=== PATIENT | female | born 1965 | race Caucasian/White ===

== ENCOUNTER 2020-11-12 15:54 | Inpatient (IN) | payer OTHER ==
[~2020-11-12] VITALS: Ht 170.2 cm; Wt 181.4 kg
[~2020-11-12 15:54] MED LIST: ABILIFY30 MG PO; BUSPAR 5MG TABLE5 MG PO; COREG 12.5MG12.5 MG PO; HUMALOG100 UNIT/1 SC; INVANZ1 GM IV; LEVEMIR100 UNIT/1 SC; LIPITOR TAB 2020 MG PO; VISTARIL25 MG PO
[2020-11-12 17:56] LABS: RED BLOOD COUNT 5.49 M/UL (4.00-5.10); WHITE BLOOD COUNT 17.1 K/UL (4.5-11.0)
[2020-11-13 04:24] LABS: RED BLOOD COUNT 5.06 M/UL (4.00-5.10); WHITE BLOOD COUNT 13.6 K/UL (4.5-11.0)
[2020-11-13 04:38] LABS: HEMOGLOBIN 13.9 gm/dl (12.3-15.3)
[2020-11-13] MEDS ORDERED: ABILIFY10 MG PO (10:00)
[2020-11-13] MEDS ORDERED: BUSPIRONE HCL15 MG PO (10:01)
[2020-11-13] MEDS ORDERED: ATORVASTATIN CA40 MG PO (10:03)
[2020-11-13] MEDS ORDERED: COREG 25MG TAB25 MG PO (10:04)
[2020-11-13] MEDS ORDERED: IMIPRAMINE HCL50 MG PO (10:05)
[2020-11-13] MEDS ORDERED: VITAMIN D21250 MCG PO (10:07)
[2020-11-13] MEDS ORDERED: BASAGLAR K100 UNIT/1 SQ (10:09)
[2020-11-13] MEDS ORDERED: ADMELOG100 UNIT/1 SC (10:10)
[2020-11-14 05:54] LABS: RED BLOOD COUNT 4.82 M/UL (4.00-5.10); WHITE BLOOD COUNT 10.7 K/UL (4.5-11.0)
[2020-11-18 06:30] LABS: HEMOGLOBIN 14.4 gm/dl (12.3-15.3); RED BLOOD COUNT 4.95 M/UL (4.00-5.10); WHITE BLOOD COUNT 8.2 K/UL (4.5-11.0)
[2020-11-19 06:34] LABS: HEMOGLOBIN 14.2 gm/dl (12.3-15.3); RED BLOOD COUNT 4.86 M/UL (4.00-5.10)
[2020-11-20] MEDS ORDERED: AMLODIPINE BESYL5 MG PO (09:44)
== END 2020-11-20 16:56 | DRG 565 ==
LOC: ER1 15:54 → CDU 22:30 → MED SURG 4 11-13 15:42
PROVIDERS: Internal Medicine; Preventive Medicine Occupational Medicine; ADMIT Internal Medicine
PROC: B24BZZ4 Ultrasonography of Heart with Aorta, Transesophageal (ICD-10-PCS; principal; 2020-11-14)
DX: T79.6XXA Traumatic ischemia of muscle, initial encounter (principal); N17.9 Acute kidney failure, unspecified; W18.30XA Fall on same level, unspecified, initial encounter; E11.65 Type 2 diabetes mellitus with hyperglycemia; E66.01 Morbid (severe) obesity due to excess calories; Z20.822 Contact with and (suspected) exposure to COVID-19; I11.0 Hypertensive heart disease with heart failure; I50.9 Heart failure, unspecified; R53.81 Other malaise; E11.42 Type 2 diabetes mellitus with diabetic polyneuropathy; F20.9 Schizophrenia, unspecified; Y92.009 Unspecified place in unspecified non-institutional (private) residence as the place of occurrence of the external cause; Z82.49 Family history of ischemic heart disease and other diseases of the circulatory system; Z79.4 Long term (current) use of insulin; Z87.891 Personal history of nicotine dependence
CPT/HCPCS: ECHO; 0240U; 36415; 70450; 71045; 72100; 72170; 80048; 80053; 80202; 81001; 82550; 82553; 82962; 83036; 83874; 83880; 84484; 85025; 85652; 86140; 87086; 93005; 93306; 93970; 94640; 94664; 94760; 96365; 96366; 96372; 96375; 96376; 97110; 97116; 97116-GP-CQ; 97161; 97530; 97530-GP-CQ; 99285; G0378; J0696; J1650; J3370; J7030; J7050; J7070; Q0177; U0002

== ENCOUNTER 2021-07-22 10:12 | Inpatient (IN) | payer OTHER ==
[~2021-07-22] VITALS: Ht 170.2 cm; Wt 147.4 kg
[~2021-07-22 10:12] MED LIST changes: +ABILIFY10 MG PO; +AMLODIPINE BESYL5 MG PO; +ATORVASTATIN CA40 MG PO; +BASAGLAR K100 UNIT/1 SQ; +BUSPIRONE HCL15 MG PO; +COREG 25MG TAB25 MG PO; +IMIPRAMINE HCL50 MG PO; -VISTARIL25 MG PO; +VITAMIN D21250 MCG PO
[2021-07-22 10:59] LABS: HEMOGLOBIN 14.7 gm/dl (12.3-15.3); RED BLOOD COUNT 4.97 M/UL (4.00-5.10); WHITE BLOOD COUNT 9.7 K/UL (4.5-11.0)
[2021-07-22] MEDS ORDERED: VOLTAREN ARTHRI20 GM TOP (15:44)
[2021-07-22] MEDS ORDERED: VISTARIL25 MG PO (19:00)
[2021-07-23 02:53] LABS: WHITE BLOOD COUNT 9.8 K/UL (4.5-11.0)
[2021-07-23 02:59] LABS: RED BLOOD COUNT 4.15 M/UL (4.00-5.10)
[2021-07-23 09:12] LABS: ACINETOBACTER BAUMANNII Not Detected (Negative); ENTEROCOCCUS Not Detected (Negative); ESCHERICHIA COLI Not Detected (Negative); KLEBSIELLA OXYTOCA Not Detected (Negative); KLEBSIELLA PNEUMONIAE Not Detected (Negative); KPC-CARBAPENEM-RESISTANCE GENE Not Detected (Negative); PROTEUS Not Detected (Negative); SERRATIA MARCESANS Not Detected (Negative); STAPHYLOCOCCUS AUREUS Not Detected (Negative); STREP AGALACTIAE (GROUP B) Not Detected (Negative); STREP PYOGENES (GROUP A) Not Detected (Negative); STREPTOCOCCUS Not Detected (Negative); vanA/B (VANCOMYCIN RESIST GENE Not Detected (Negative)
[2021-07-23 09:13] LABS: CANDIDA ALBICANS Not Detected (Negative); CANDIDA KRUSEI Not Detected (Negative); CANDIDA TROPICALIS Not Detected (Negative); HAEMOPHILUS INFLUENZAE Not Detected (Negative); PSEUDOMONAS AERUGINOSA Not Detected (Negative)
[2021-07-23 10:26] LABS: STAPHYLOCOCCUS DETECTED (Negative); mecA (METHICILLIN RESIST GENE DETECTED (Negative)
[2021-07-24 05:29] LABS: HEMOGLOBIN 11.8 gm/dl (12.3-15.3); RED BLOOD COUNT 4.13 M/UL (4.00-5.10); WHITE BLOOD COUNT 9.4 K/UL (4.5-11.0)
[2021-07-24 06:24] LABS: BUN/CREATININE RATIO 18 (0-10)
[2021-07-25 08:00] LABS: HEMOGLOBIN 11.7 gm/dl (12.3-15.3); RED BLOOD COUNT 4.06 M/UL (4.00-5.10); WHITE BLOOD COUNT 10.5 K/UL (4.5-11.0)
[2021-07-26 04:26] LABS: HEMOGLOBIN 11.4 gm/dl (12.3-15.3); RED BLOOD COUNT 3.94 M/UL (4.00-5.10); WHITE BLOOD COUNT 9.5 K/UL (4.5-11.0)
[2021-07-27 08:25] LABS: RED BLOOD COUNT 4.05 M/UL (4.00-5.10); WHITE BLOOD COUNT 9.9 K/UL (4.5-11.0)
[2021-07-28 07:29] LABS: HEMOGLOBIN 12.9 gm/dl (12.3-15.3); RED BLOOD COUNT 4.41 M/UL (4.00-5.10); WHITE BLOOD COUNT 9.8 K/UL (4.5-11.0)
[2021-08-05 07:03] LABS: RED BLOOD COUNT 4.59 M/UL (4.00-5.10)
[2021-08-06 07:02] LABS: HEMOGLOBIN 12.3 gm/dl (12.3-15.3); RED BLOOD COUNT 4.25 M/UL (4.00-5.10)
[2021-08-06 07:03] LABS: WHITE BLOOD COUNT 12.6 K/UL (4.5-11.0)
[2021-08-07 09:25] LABS: HEMOGLOBIN 13.1 gm/dl (12.3-15.3); RED BLOOD COUNT 4.51 M/UL (4.00-5.10); WHITE BLOOD COUNT 10.6 K/UL (4.5-11.0)
[2021-08-08 04:49] LABS: HEMOGLOBIN 12.1 gm/dl (12.3-15.3); RED BLOOD COUNT 4.25 M/UL (4.00-5.10); WHITE BLOOD COUNT 11.5 K/UL (4.5-11.0)
[2021-08-09 04:48] LABS: HEMOGLOBIN 12.6 gm/dl (12.3-15.3); RED BLOOD COUNT 4.29 M/UL (4.00-5.10); WHITE BLOOD COUNT 10.5 K/UL (4.5-11.0)
[2021-08-10 05:52] LABS: HEMOGLOBIN 13.8 gm/dl (12.3-15.3); WHITE BLOOD COUNT 10.1 K/UL (4.5-11.0)
[2021-08-10 05:54] LABS: RED BLOOD COUNT 4.82 M/UL (4.00-5.10)
--- NOTE | 2021-08-11 05:03 | NUR ---
PATIENT HAS BEEN DOING LEG LIFTS IN BED SHE STATED "SHE IS WORKING ON STRENGTHING HER LEG MUSCLES". SHE HAS SHOWN IMPROVEMENT WITH LIFTING HER OWN LEGS INTO THE BED SINCE MONDAY WHEN I FIRST HAD HER MY PATIENT. SHE DOES GREAT WITH ENCOURAGEMENT AND PRAISE.
[2021-08-11] MEDS ORDERED: ASPIRIN EC81 MG PO (12:59)
[2021-08-11] MEDS ORDERED: FUROSEMIDE40 MG PO (12:59)
--- NOTE | 2021-08-11 17:30 | NUR ---
[facility].
== END 2021-08-11 19:50 | DRG 291 ==
LOC: ER1 10:12 → CDU 13:49 → MED SURG 4 13:49
PROVIDERS: Family Medicine; Internal Medicine; Physician Assistant Medical; ADMIT Internal Medicine
PROC: B24BZZZ Ultrasonography of Heart with Aorta (ICD-10-PCS; principal; 2021-07-24)
DX: I11.0 Hypertensive heart disease with heart failure (principal); J96.01 Acute respiratory failure with hypoxia; I50.33 Acute on chronic diastolic (congestive) heart failure; N17.9 Acute kidney failure, unspecified; E11.9 Type 2 diabetes mellitus without complications; E78.5 Hyperlipidemia, unspecified; E66.01 Morbid (severe) obesity due to excess calories; E11.40 Type 2 diabetes mellitus with diabetic neuropathy, unspecified; Z20.822 Contact with and (suspected) exposure to COVID-19; F20.9 Schizophrenia, unspecified; Z98.890 Other specified postprocedural states; Z87.891 Personal history of nicotine dependence; F31.9 Bipolar disorder, unspecified; E87.6 Hypokalemia
CPT/HCPCS: ECHO; 36415; 36600; 71045; 71046; 80048; 80053; 80202; 81001; 82550; 82553; 82803; 82962; 83605; 83735; 83874; 83880; 84484; 85025; 85027; 85379; 86140; 87040; 87077; 87150; 87186; 93005; 93306; 97110; 97116; 97116-GP-CQ; 97161; 97530-GP-CQ; 99285; J1650; J1940; J2185; J2405; J3370; J3475; J7030; J7070; Q0177; U0002

== ENCOUNTER 2021-10-27 16:22 | Emergency (ER) | payer OTHER ==
[~2021-10-27 16:22] MED LIST changes: +ASPIRIN EC81 MG PO; +FUROSEMIDE40 MG PO; +VISTARIL25 MG PO; +VOLTAREN ARTHRI20 GM TOP
[2021-10-27 17:04] LABS: HEMOGLOBIN 11.8 gm/dl (12.3-15.3); RED BLOOD COUNT 4.02 M/UL (4.00-5.10); WHITE BLOOD COUNT 9.9 K/UL (4.5-11.0)
== END 2021-10-27 18:40 | disposition home or self-care (01) ==
LOC: ER1 16:22
PROVIDERS: Preventive Medicine Occupational Medicine
DX: E86.0 Dehydration (principal); E11.9 Type 2 diabetes mellitus without complications; I10 Essential (primary) hypertension
CPT/HCPCS: 80048; 85025; 93005; 99285; J7030

== ENCOUNTER → 2022-01-19 | Outpatient (CLI) | payer OTHER ==
[2022-01-19 14:34] LABS: HEMOGLOBIN 12.4 gm/dl (12.3-15.3); RED BLOOD COUNT 4.19 M/UL (4.00-5.10); WHITE BLOOD COUNT 9.3 K/UL (4.5-11.0)
== END ==
LOC: US 13:21
PROVIDERS: Internal Medicine Nephrology; Nurse Practitioner Psychiatric/Mental Health
DX: N18.31 Chronic kidney disease, stage 3a (principal); E78.5 Hyperlipidemia, unspecified; E55.9 Vitamin D deficiency, unspecified
CPT/HCPCS: 36415; 80053; 80061; 82550; 82570; 82607; 82652; 82746; 83036; 83970; 84100; 84146; 84156; 84443; 85027; 93005

== ENCOUNTER → 2022-03-07 | Outpatient (CLI) | payer OTHER | LOC: RAD 15:54 | DX: R06.02 Shortness of breath (principal) | CPT/HCPCS: 71046 ==